=== PATIENT | male | born 1995 | race Caucasian/White ===

== ENCOUNTER 2021-08-08 15:26 | Emergency (ER) | payer OTHER, SELFPAY ==
[2021-08-08 15:31] VITALS: BP 120/75; PULSE 78; RESP 18; TEMP 36.9; O2SAT 98; BMI 36.6
[2021-08-08] MEDS: Tetracaine HCl/PF 0.5% Oph Sol 4 ML DROPS 1 DROP EYE-RIGHT (15:40)
[2021-08-08] MEDS: Fluorescein Sodium STRIP 1 STRIP EYE-RIGHT (15:40)
--- NOTE | 2021-08-08 15:43 | ED_ITS ---
HPI - Eye Problem General Chief complaint: Eye Problems Stated complaint: swollen right eye painful Time Seen by Provider: 08/08/21 15:35 Source: patient Mode of arrival: ambulatory Limitations: no limitations History of Present Illness HPI Narrative: 25-year-old male presents to the ER for evaluation of red and irritated right eye that started earlier today he was at work. 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 He denies any injury or foreign body sensation. He reports the eye slightly injury and watering more. It is red. He noticed some new onset swelling of the upper eyelid, denies any trauma. He denies any vision changes. He does not wear contacts or glasses. No URI symptoms. No complaints of the left eye. MD chief complaint: eye pain and eye redness Onset (ago): hour(s) Onset description: gradual Duration: constant Location: right eye Eye Symptoms: redness, pain, itching and discharge Place: work Mechanism: none Severity: moderate Severity scale (1-10): 5 If Pain, Quality: burning and aching Associated symptoms: none Treatments Prior to Arrival: none Related Data Patient tetanus UTD: Yes Previous Rx's Medication Instructions Recorded sulfacetamide sodium 10 % eye 1 drp ophthalmic (eye) Q3H #15 mL 08/08/21 drops (Bleph-10) Allergies Allergy/AdvReac Type Severity Reaction Status Date / Time No Known Allergies Allergy Unverified 11/09/19 19:32 [No Known Allergies*] Review of Systems Review of Systems: Constitutional: No Fever, No Chills ENT/Mouth: No sore throat, No Rhinorrhea, No Swallowing Difficulty Eyes: + Eye Pain, + Swelling, + Redness, +Discharge, No vision changes Cardiovascular: No Chest Pain, No SOB Respiratory: No Cough, No Sputum Gastrointestinal: No Nausea, No Vomiting Skin: No Skin Lesions, No rash Neuro: No Dizziness, No Headache Heme/Lymph:No Lymphadenopathy Physical Exam Vital Signs: Vital Signs: Last Vital Signs Temp 98.5 F 08/08/21 15:31 Pulse 78 08/08/21 15:31 Resp 18 08/08/21 15:31 BP 120/75 08/08/21 15:31 Pulse Ox 98 08/08/21 15:31 O2 Del Method 08/08/21 15:31 BMI result Body Mass Index 36.6 Appearance: Alert. Oriented X3. No acute distress. HEENT: Right eye with mild upper lid swelling, medial aspect slightly worse than the lateral aspect. Lid mandy it and no evidence of pustule or hordeolum visible at this time. The sclera and conjunctiva is injected throughout. Fluor escein exam reveals no corneal abrasions. Pupils are equal round reactive to light, EOMI. Normal inspection of the left eye CVS: Normal heart rate and rhythm. Pulses normal. Respiratory: No respiratory distress. Skin: Skin warm and dry. Normal skin color. Normal skin turgor. No rashes. Extremities: Normal inspection x4 Neuro: Oriented X 3. Grossly normal, nonfocal Course Course Course Narrative: 25-year-old male presents to the ER with irritated right eye that started earlier today. No foreign body sensation. It is slightly itchy with a swollen superior lid. There is conjunctival and scleral injection. Slight discharge noted. No vision changes. Fluorescein exam without any ulcerations or corneal abrasions. Will prescribe antibiotic drops for conjunctivitis/early hordeolum. Warm compresses advised and encouraged. Stable for discharge home. Given number for eye doctor across the street if symptoms dont improve or worsen. Critical Care Time Critical Care Time Critical Care Time: No Discharge Plan Discharge Clinical Impression: Conjunctivitis, Internal hordeolum of right eye Patient Disposition: Home, Self-Care Instructions: Stye (ED), Conjunctivitis (ED) Additional Instructions: Use the prescribed antibiotic drops as directed. Use warm compresses to the eye several times per day. Do your best not to itch or scratch your eye. Follow up with the eye doctor if no improvement or worsening symptoms. Name and number below Prescriptions: New sulfacetamide sodium [Bleph-10] 10 % drops 1 drp ophthalmic (eye) Q3H Qty: 15 0RF Referrals: Rehan Shah [Physician] - Stand Alone Forms: Work/School Release
== END 2021-08-08 15:57 | disposition home or self-care (01) ==
PROVIDERS: Emergency Provider Student in an Organized Health Care Education/Training Program
DX: H10.9 Unspecified conjunctivitis (principal); H00.011 Hordeolum externum right upper eyelid
CPT/HCPCS: 99283

== ENCOUNTER 2022-08-24 14:16 | Outpatient (REF) | payer MEDICAID, SELFPAY | END 2022-08-24 14:17 | disposition home or self-care (01) | LOC: HO.LAB 14:16 | PROVIDERS: Visit Provider Surgery | DX: E66.9 Obesity, unspecified (principal); R73.03 Prediabetes; G47.8 Other sleep disorders; F32.A Depression, unspecified; Z72.0 Tobacco use; Z68.39 Body mass index [BMI] 39.0-39.9, adult | CPT/HCPCS: 36415; 83036; 84134; 84443; 85025; 86140; 99202 ==

== ENCOUNTER 2022-09-22 10:29 | Outpatient (AMB) | payer MEDICAID, SELFPAY ==
--- NOTE | 2022-09-22 10:38 | MHC.OFFVISWM ---
Intake VS Expanded 09/22/22 10:50 Height 5 ft 11 in Weight 281 lb 12.012 oz BMI 39.3 BP 130/85 Blood Pressure Location Lt brachial Blood Pressure Position Sitting Pulse 78 Temp 97.9 F Temperature Source Temporal Artery Scan Pulse Oximetry 98 Oxygen Delivery Method Room Air Body Fat 104.2 Body Fat Percentage 37.1 Free Fat Mass 177.0 Muscle Mass 168.4 Visceral Mass 17.0 Water Mass 124.8 BMR 2,503 Intake Visit Reasons: (OV) F/U Gastric Balloon Intake Note: Patient here for 1m f/u gastric balloon. Discuss lab results. Reports no changes in medical hx. Currently does not take medications. Recent abs done on 08-24-22. 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 Patient notes that his heaviest weight of his adult life is 285 lb which prompted evaluation for pre diabetes, but the patient does not recall the measurements and we do not have notes from his PCP. In the time since his last visit, the patient is interested in pursuing sleeve gastrectomy. Patient also reports non restorative sleep and occasional headaches in the morning when he awakes. He notes that he has history of snoring and we wakes up gasping. His obesity also contributes to depression and feeling poorly about himself. His weight today 281.4/BMI 39.3 He denies prior abdominal operations. 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 Father Depression Son No problems noted. Son No problems noted. Son No problems noted. Son No problems noted. Social History Alcohol intake: current Alcohol intake frequency: holidays/special occasions only Patient Tobacco Use Status: Never used Tobacco Tobacco use type: Smokeless Tobacco Review of Systems Const All systems reviewed & are unremarkable except as noted in HPI and below Reports as per HPI Physical Exam On exam he is nontoxic He is in no acute distress He is having no respiratory difficulty Abdomen is obese Results Reviewed Results Reviewed: Labs 08/24/2022 Hemoglobin 14.8, normal indices, white blood cell count 6.5, normal differential, platelet count 226k Hemoglobin A1c 5.5 Pre-albumin 22.0 TSH 1.62 Urine nicotine pending Assessment & Plan Assessment & Plan (1) BMI 39.0-39.9,adult: Code(s): Z68.39 - Body mass index [BMI] 39.0-39.9, adult (2) Nicotine use: Code(s): Z72.0 - Tobacco use (3) Depression: Code(s): F32.A - Depression, unspecified (4) Non-restorative sleep: Code(s): G47.8 - Other sleep disorders Plan The patient is interested in moving forward with bariatric surgery, specifically a sleeve gastrectomy instead of gastric balloon. The importance of proper diet and increased activity to augment surgical weight loss was reviewed and apparently understood. Handouts regarding protein supplements and meal substitution as well as the importance of avoiding empty calories in beverages/carbohydrates and fats were reviewed and apparently understood. Patient will return to see me for 45 minute visit and will be set up with Behavioral Health, dietitian; see orders I reviewed the importance of nicotine cessation due to risk of ulcers and complications that could be fatal. Patient seemed understand and stated he would comply. Preoperative urine testing for nicotine was reviewed with the patient. Orders: Orders Vitamin B12 and Folate Today F32.A - Depression, unspecified, G47.8 - Other sleep disorders, Z68.39 - Body mass index [BMI] 39.0-39.9, adult, Z72.0 - Tobacco use Comprehensive Met. Panel Today F32.A - Depression, unspecified, G47.8 - Other sleep disorders, Z68.39 - Body mass index [BMI] 39.0-39.9, adult, Z72.0 - Tobacco use C Reactive Protein Today F32.A - Depression, unspecified, G47.8 - Other sleep disorders, Z68.39 - Body mass index [BMI] 39.0-39.9, adult, Z72.0 - Tobacco use Ferritin Today F32.A - Depression, unspecified, G47.8 - Other sleep disorders, Z68.39 - Body mass index [BMI] 39.0-39.9, adult, Z72.0 - Tobacco use Insulin Today F32.A - Depression, unspecified, G47.8 - Other sleep disorders, Z68.39 - Body mass index [BMI] 39.0-39.9, adult, Z72.0 - Tobacco use IRON PROFILE Today F32.A - Depression, unspecified, G47.8 - Other sleep disorders, Z68.39 - Body mass index [BMI] 39.0-39.9, adult, Z72.0 - Tobacco use Lipid Panel Today F32.A - Depression, unspecified, G47.8 - Other sleep disorders, Z68.39 - Body mass index [BMI] 39.0-39.9, adult, Z72.0 - Tobacco use PTHI Today F32.A - Depression, unspecified, G47.8 - Other sleep disorders, Z68.39 - Body mass index [BMI] 39.0-39.9, adult, Z72.0 - Tobacco use Vitamin A Today F32.A - Depression, unspecified, G47.8 - Other sleep disorders, Z68.39 - Body mass index [BMI] 39.0-39.9, adult, Z72.0 - Tobacco use Vitamin B1 Today F32.A - Depression, unspecified, G47.8 - Other sleep disorders, Z68.39 - Body mass index [BMI] 39.0-39.9, adult, Z72.0 - Tobacco use Vitamin D 25-OH Total Today F32.A - Depression, unspecified, G47.8 - Other sleep disorders, Z68.39 - Body mass index [BMI] 39.0-39.9, adult, Z72.0 - Tobacco use Zinc Today F32.A - Depression, unspecified, G47.8 - Other sleep disorders, Z68.39 - Body mass index [BMI] 39.0-39.9, adult, Z72.0 - Tobacco use ECG 12 lead EKG Today F32.A - Depression, unspecified, G47.8 - Other sleep disorders, Z68.39 - Body mass index [BMI] 39.0-39.9, adult, Z72.0 - Tobacco use H Pylori Breath Test Today F32.A - Depression, unspecified, G47.8 - Other sleep disorders, Z68.39 - Body mass index [BMI] 39.0-39.9, adult, Z72.0 - Tobacco use Nicotine and Metabolite Ur, Qt Today G47.8 - Other sleep disorders, Z68.39 - Body mass index [BMI] 39.0-39.9, adult, Z72.0 - Tobacco use FL upper GI w air w Ba Swallow Today F32.A - Depression, unspecified, G47.8 - Other sleep disorders, Z68.39 - Body mass index [BMI] 39.0-39.9, adult, Z72.0 - Tobacco use RT home sleep study Today F32.A - Depression, unspecified, G47.8 - Other sleep disorders, Z68.39 - Body mass index [BMI] 39.0-39.9, adult, Z72.0 - Tobacco use US abdomen comp w elastography Today F32.A - Depression, unspecified, G47.8 - Other sleep disorders, Z68.39 - Body mass index [BMI] 39.0-39.9, adult, Z72.0 - Tobacco use XR chest 2V Today F32.A - Depression, unspecified, G47.8 - Other sleep disorders, Z68.39 - Body mass index [BMI] 39.0-39.9, adult, Z72.0 - Tobacco use Referrals Behavioral Health Referral F32.A - Depression, unspecified, G47.8 - Other sleep disorders, Z68.39 - Body mass index [BMI] 39.0-39.9, adult, Z72.0 - Tobacco use Nutrition/Dietitian Referral F32.A - Depression, unspecified, G47.8 - Other sleep disorders, Z68.39 - Body mass index [BMI] 39.0-39.9, adult, Z72.0 - Tobacco use Coding Level of Care Code Est Pt Level 4 (04063) Diagnoses BMI 39.0-39.9,adult Z68.39 Nicotine use Z72.0 Depression F32.A Non-restorative sleep G47.8
[2022-09-22 10:50] VITALS: BP 130/85; PULSE 78; TEMP 36.6; O2SAT 98; BMI 39.3
== END 2022-09-22 11:16 | disposition home or self-care (01) ==
PROVIDERS: Visit Provider Surgery
DX: E66.01 Morbid (severe) obesity due to excess calories (principal); Z68.39 Body mass index [BMI] 39.0-39.9, adult
CPT/HCPCS: 99215

== ENCOUNTER → 2022-09-22 10:29 | Outpatient (BNVA) | payer MEDICAID, SELFPAY | PROVIDERS: Visit Provider Surgery ==

== ENCOUNTER 2022-10-13 13:13 | Outpatient (REF) | payer MEDICAID, SELFPAY ==
--- NOTE | ~2022-10-13 | XR_ITS ---
EXAMINATION: XR CHEST CLINICAL INFORMATION: Body mass index COMPARISON: None available. TECHNIQUE: 2 views of the chest were obtained. FINDINGS: There is no gross pneumothorax. Heart size is normal. No pleural effusion. No focal consolidation to suggest pneumonia. XR/XR chest 2V IMPRESSION: No evidence of pneumonia.
--- NOTE | ~2022-10-13 | US_ITS ---
EXAMINATION: US COMPLETE ABDOMEN WITH LIVER ELASTOGRAPHY CLINICAL INFORMATION: Obesity. COMPARISON: None available. TECHNIQUE: Real-time imaging of the abdominal viscera. Noninvasive ultrasound liver fibrosis assessment is performed using Jennifer ElastPQ point quantification shear wave elastography (2D-SWE) with a C5-2 MHz transducer. Multiple elastography samples are obtained. FINDINGS: PANCREAS: Limited. The visualized pancreatic head and body are normal in appearance. The remainder of the pancreas is obscured from visualization by the overlying bowel gas. ABDOMINAL AORTA: The proximal, middle, and distal aortic segments are normal in caliber. INFERIOR VENA CAVA: Visualized portions are normal. LIVER: There is very mild hepatomegaly. The liver demonstrates normal contour and increased echogenicity, with pericholecystic sparing. No focal lesion or intrahepatic biliary duct dilatation. The right lobe measures 17.2 cm in length. The left lobe measures 14.0 cm in length. Portal flow is towards the liver (hepatopetal). Shear wave liver elastography median stiffness is 1.31 m/s (reference: normal median stiffness is 1.3 m/s or less). IQR/median stiffness to assess sampling precision is 0.4 (reference: good quality data set is IQR/median stiffness of 0.15 or less). GALLBLADDER: Normal. The gallbladder is physiologically distended without evidence of stones, sludge, polyps, wall thickening or pericholecystic fluid. COMMON BILE DUCT: Normal in caliber measuring 0.4 cm in diameter. RIGHT KIDNEY: Normal. No hydronephrosis. No renal calculi or focal parenchymal lesions. The kidney measures 12.0 cm in maximum dimension. LEFT KIDNEY: Normal. No hydronephrosis. No renal calculi or focal parenchymal lesions. The kidney measures 12.1 cm in maximum dimension. SPLEEN: Normal. The spleen measures 10.6 cm in maximum dimension. FREE FLUID: None. US/US abdomen comp w elastography IMPRESSION: 1. There is generalized increase in hepatic echotexture, consistent with fatty infiltration or hepatocellular disease. Please correlate clinically. Characteristic pericholecystic sparing favors fatty infiltration. No focal hepatic mass or intrahepatic biliary dilatation is seen. 2. There is very mild hepatomegaly. 3. Liver elastography: In the absence of other known clinical signs, measurements rule out compensated advanced chronic liver disease. If there are known clinical signs, further testing may be needed for confirmation. 4. Technically limited ultrasound examination of the pancreatic tail. REFERENCE: Society of Radiologists in Ultrasound Liver Stiffness Thresholds (2020): LIVER STIFFNESS THRESHOLDS: *Liver Stiffness equal or less than 1.3 m/s: High probability of being normal. *Liver Stiffness less than 1.7 m/s: In the absence of other known clinical signs, rules out compensated advanced chronic liver disease. *Liver Stiffness 1.7-2.1 m/s: Suggestive of compensated advanced chronic liver disease but need further test for confirmation. *Liver Stiffness over 2.1 m/s: Rules in compensated advanced chronic liver disease. *Liver Stiffness over 2.4 m/s: Suggestive of clinically significant portal hypertension. QUALITY OF DATA SET: *IQR/Median value equal or less than 0.15 implies a quality data set. *IQR/Median value over 0.15 implies a poor quality data set. SIGNIFICANT CHANGE FROM PRIOR EXAM: Significant change if liver stiffness measurement is 10% or greater from prior exam. OTHER CONSIDERATIONS: The stage of liver fibrosis may be overestimated in the setting of acute hepatitis, liver inflammation, elevated liver function tests, hepatic vascular congestion, obstructive cholestasis, non-fasting state, and infiltrative diseases such as amyloidosis and lymphoma. In some patients with NAFLD, the liver stiffness thresholds for compensated advanced chronic liver disease may be lower. In causes other than viral hepatitis and NAFLD, liver stiffness thresholds are not well established.
== END 2022-10-13 13:14 | disposition home or self-care (01) ==
LOC: HO.US 13:13
PROVIDERS: Visit Provider Surgery
DX: E66.9 Obesity, unspecified (principal); Z68.39 Body mass index [BMI] 39.0-39.9, adult; F32.A Depression, unspecified; G47.8 Other sleep disorders; Z72.0 Tobacco use
CPT/HCPCS: 71046; 76705; 76981

== ENCOUNTER 2022-10-21 08:35 | Outpatient (AMB) | payer MEDICAID, SELFPAY ==
--- NOTE | 2022-10-21 08:37 | A.OFFVIS_ITS ---
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 Patient notes that his heaviest weight of his adult life is 285 lb which prompted evaluation for pre diabetes, but the patient does not recall the measurements and we do not have notes from his PCP. In the time since his last visit, the patient is interested in pursuing sleeve gastrectomy. The patient has tried pure protein which she will mix with water; he is instructed to try almond milk, on sweetened. The importance of exercise and tracking calorie burning per exercise session was discussed. Patient also reports non restorative sleep and occasional headaches in the morning when he awakes. He notes that he has history of snoring and we wakes up gasping. His obesity also contributes to depression and feeling poorly about himself. His weight today 283.8/BMI 39.6 Preop work-up SWL classes __ /8 RD Labs H. pylori EKG CXR NAD Abd U/S hepatomegaly, NAFLD UGI He denies prior abdominal operations. 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 Father Depression Son No problems noted. Son No problems noted. Son No problems noted. Son No problems noted. Social History Alcohol intake: current Alcohol intake frequency: holidays/special occasions only Patient Tobacco Use Status: Never used Tobacco Tobacco use type: Smokeless Tobacco Review of Systems Const All systems reviewed & are unremarkable except as noted in HPI and below Reports as per HPI Physical Exam Vital Signs: Last Vital Signs Temp 97.8 F 10/21/22 08:41 Pulse 84 10/21/22 08:41 BP 154/69 H 10/21/22 08:41 Pulse Ox 95 10/21/22 08:41 Oxygen Delivery Method Room Air 10/21/22 08:41 On exam he is nontoxic He is in no acute distress He is having no respiratory difficulty Abdomen is obese Results Reviewed Results Reviewed: Labs 08/24/2022 Hemoglobin 14.8, normal indices, white blood cell count 6.5, normal differential, platelet count 226k Hemoglobin A1c 5.5 Pre-albumin 22.0 TSH 1.62 Urine nicotine pending Diagnostic imaging Abdominal ultrasound with liver elastography 10/13/2022 shows NAFLD & mild hepatomegaly CXR NAD Assessment & Plan Assessment & Plan (1) BMI 39.0-39.9,adult: Code(s): Z68.39 - Body mass index [BMI] 39.0-39.9, adult (2) Non-restorative sleep: Code(s): G47.8 - Other sleep disorders (3) Nicotine use: Code(s): Z72.0 - Tobacco use (4) Depression: Code(s): F32.A - Depression, unspecified Plan The patient remains interested in proceeding with laparoscopic sleeve gastrectomy. The importance of continuing the workup to assess for vitamin deficiency was discussed and apparently understood. Patient has fasting labs as well as diagnostic imaging outstanding. He will return in 3 weeks for 45 minute follow-up and call the office with questions. The patient confirmed he would like his meal plan interpreted in to Khmer and sent to: [email or web address] [email or web address] Bariatric Plan 1.?? Nutritional counseling:?Be sure to careful read the number of scoops per shake if you are using powdered mix Start with 3 Pure Protein shakes, 25gm protein/scoop First shake (1 scoop in 8 oz low fat unsweetened almond milk or water) at 3pm- 5pm Dinner at 4pm (10 forks of protein and 10 forks of salad/vegetables). Meal to include lean meat (beef, fish, pork, turkey, chicken), cooked vegetables or a salad with olive oil and/or fruits (berries, pears, apples, kiwi). Avoid breads, potatoes, starches, rice, pasta, desserts, no cookies or candies. Second shake, (1 scoop in 8 oz low fat unsweetened almond milk or water) at 8pm-10pm Another shake with 1/2 scoop in 8 oz unsweetened almond milk or water as a work snack at 10pm-5am. Try to drink 64 oz of water daily and avoid soda and juices. Remember to try one of the recommended protein bars to report which you will use. ?2. Each shake would be drunk slowly, like coffee in a period of 2 hours. ?3. Cut each bar in 4 pieces and eat each piece in 30 min to make each bar last 2 hours. ?4. I emphasized the importance of measuring accurately the food portion and measure it carefully when serving the food on the plate ?5. The meal portions include 10 full-size forks of meat and 10 full-size forks of salad. You should always eat the meat portion but you can skip the forks of salad/vegetables and replace with a fruit if you like. The less you do it the better weight loss will be. ?6. One full-size fork is what can be scooped on the fork without falling aside and not what can be bit with the fork. Use regular forks like those you find in a typical restaurant. ?7.? Please send me weight measurements as soon as possible and then once a week. Always include your diet and exercise plan. Alternatively come weekly at the office for weight checks and send me the measurements. ?8. Exercise counseling:? Begin by watching a stretching for beginner?s video.? Start slowly and begin to stretch your muscles.? You should do this before and after each exercise session to prevent injury.? Please use the exercise equipment at your building. Start elliptical with a resistance of 2. Increase resistance by 1 every 3 min to your most comfortable resistance with a max resistance of 8.? Reduce the resistance by 1 every 3 minutes back down to 2 and repeat cycles for 300 calories. Alternatively, start treadmill with a speed of 3.0 and incline of 0, increasing incline by 1 every 3 minutes to the highest comfortable level (max 6 for now) then decrease in the same fashion.? Repeat p rocess to a goal of 300 calories.? Goal of 2000 calories burned or more weekly.? You may also consider use of the stationary bike.? The easiest would be to choose the fat-burn or interval training program on the machine and do this until you reach the 300 calorie goal.? Alternatively, you can manually adjust the resistance in a similar fashion as mentioned above, (resistance of 2-8 with a goal speed of 12 mph).?Tracking calories is essential. 9. Alternatively, start walking outside daily, tracking calories with a goal of 300 calories per day, daily. If kmppb-yuqda-lay is needed, you can start there, but the goal is DAILY. You can download the kristina?[email or web address]?which can track your time, distance and calories while walking outside.? You press start in the kristina when you start and then stop when you are finished. ? 10.? It is important to avoid and for at least 18 months postoperatively and it has been discussed at the information session 11. Please get labs, EKG and chest X-Ray within 1 week. 12. Discussed and answered all questions regarding?obtained consent to participate in the [facility]?Registry. 13. Please follow the diet plan exactly, without any change.? If you do not like something about the plan or you feel hungry, you need to communicate with me so I can help you revise the plan.? You should not change the plan yourself. 14. Goal is to lose 1.5-2.0 lbs/week 15. Goal is to lose 10% of your weight before surgery, which is about 28.3 lbs. Ultimate weight goal: 255.5 lbs before surgery IF YOU EXPERIENCE PAIN, SEVERE SHORTNESS OF BREATH, DIZZINESS OR LIGHTHEADEDNESS, OR SIGNIFICANT CONSTIPATION OR DIARRHEA, (DIARRRHEA CAN OCCUR FROM SOME ARTIFICIAL SWEETENERS) PLEASE NOTIFY THE OFFICE! If you have diabetes, you will need to follow your blood sugars.? Please discuss with Dr. Gamboa.? If you have hypertension/high blood pressure, you will need to monitor your bl ood pressure regarding adjusting medications.? Please discuss with Dr. Gamboa.? Patient is morbidly obese and is not considered stable at this time.?I spent a total of 63 minutes reviewing/updating records, examining the patient and counseling the patient on weight management as detailed above. Moglueube options: ?Sit to Be Fit, Daily Burn, Jeramie, Walk away the pounds, The [employer] Project Websites: Sit and Be Fit? https://www.sitandbefit.org/ Go For Life https://ch5dyym.claudia.nih.gov/ Coding Level of Care Code Est Pt Level 5 (31567) Diagnoses BMI 39.0-39.9,adult Z68.39 Non-restorative sleep G47.8 Nicotine use Z72.0 Depression F32.A
[2022-10-21 08:41] VITALS: BP 154/69; PULSE 84; TEMP 36.6; O2SAT 95
== END 2022-10-21 09:41 | disposition home or self-care (01) ==
PROVIDERS: Visit Provider Surgery
DX: E66.01 Morbid (severe) obesity due to excess calories (principal); Z68.39 Body mass index [BMI] 39.0-39.9, adult
CPT/HCPCS: 99215

== ENCOUNTER → 2022-10-21 08:35 | Outpatient (BNVA) | payer MEDICAID, SELFPAY | PROVIDERS: Visit Provider Surgery | DX: E66.9 Obesity, unspecified (principal); Z68.39 Body mass index [BMI] 39.0-39.9, adult; G47.8 Other sleep disorders; F32.A Depression, unspecified; Z72.0 Tobacco use | CPT/HCPCS: 99212 ==

== ENCOUNTER 2022-10-27 10:34 | Outpatient (REF) | payer MEDICAID, SELFPAY ==
--- NOTE | ~2022-10-27 | FL_ITS ---
EXAMINATION: XR FLUOROSCOPY UPPER GI WITH AIR CLINICAL INFORMATION: Preoperative bariatric surgery. COMPARISON: None TECHNIQUE: Fluoroscopic air contrast upper GI examination was performed utilizing standard techniques with thin and thick barium and effervescent granules. Numerous spot images were obtained. FINDINGS: Lateral cine images of the oropharynx and hypopharynx demonstrate normal swallow mechanism with normal epiglottic inversion and soft palate elevation. No tracheal penetration, glottic or subglottic aspiration identified. No nasopharyngeal reflux present. Hypopharyngeal structures appear normal without evidence of mass or diverticulum. There was no significant cricopharyngeal achalasia. Dual and single contrast images of the esophagus demonstrate normal caliber, contour, and mucosal pattern. No evidence of stricture, mass, or ulcerations identified. Esophageal peristalsis was normal. No evidence of hiatus hernia identified. Mild gastroesophageal reflux was seen during the course of the examination, to the approximate level of the tanja. Dual contrast and single contrast images of the stomach demonstrated normal contour and mucosal pattern without evidence of mass, ulceration, or other abnormality. Contrast freely passed into the gastric antrum and duodenal bulb without delay. Single and air-contrast images of the duodenal bulb demonstrate no abnormality. The duodenal sweep has a normal appearance, course, and mucosal fold appearance. The imaged proximal jejunum has a normal fold pattern and caliber. FLUOROSCOPY TIME: 3.3 minutes Number of Spot Images: 25 DOSE AREA PRODUCT: 43.889 uGy-m2 (microgray-meter squared) FL/FL upper GI w air w Ba Swallow IMPRESSION: Mild gastroesophageal reflux identified. Otherwise, normal examination.
--- NOTE | 2022-10-27 11:17 | ECG_ITS ---
Test Reason : HIGH BMI Blood Pressure : / mmHG Vent. Rate : 078 BPM Atrial Rate : 078 BPM P-R Int : 164 ms QRS Dur : 088 ms QT Int : 358 ms P-R-T Axes : 041 -24 008 degrees QTc Int : 408 ms Normal sinus rhythm Normal ECG No previous ECGs available Referred By: Stanley Gamboa Electronically Signed By:DAVID NGUYEN
== END 2022-10-27 10:35 | disposition home or self-care (01) ==
LOC: HO.XRAY 10:34
PROVIDERS: Visit Provider Surgery
DX: F32.A Depression, unspecified (principal); G47.8 Other sleep disorders; Z72.0 Tobacco use
CPT/HCPCS: 74246; 93005

== ENCOUNTER → 2022-10-27 10:36 | Outpatient (BNV) | payer MEDICAID, SELFPAY | PROVIDERS: Visit Provider Radiology Diagnostic Radiology | DX: G47.8 Other sleep disorders (principal); E66.9 Obesity, unspecified; Z01.818 Encounter for other preprocedural examination | CPT/HCPCS: 74246 ==

== ENCOUNTER → 2022-11-03 15:11 | Outpatient (BNVA) | payer MEDICAID, SELFPAY | PROVIDERS: Visit Provider Dietitian, Registered | DX: E66.9 Obesity, unspecified (principal); Z71.3 Dietary counseling and surveillance | CPT/HCPCS: 97802 ==

== ENCOUNTER → 2022-11-09 09:29 | Outpatient (BNV) | payer MEDICAID, SELFPAY | PROVIDERS: Visit Provider Internal Medicine | DX: G47.33 Obstructive sleep apnea (adult) (pediatric) (principal) | CPT/HCPCS: 95806 ==

== ENCOUNTER → 2022-11-09 13:12 | Outpatient (REF) | payer MEDICAID, SELFPAY ==
[2022-11-09 15:28] LABS: Alanine Aminotransferase 33 U/L (0-40); Albumin Level 4.4 g/dL (3.5-5.0); Alkaline Phosphatase 60 U/L (39-117); Anion Gap 12 (12-20); Aspartate Amino Transferase 22 U/L (5-37); Bilirubin Total 0.4 mg/dL (0.0-1.0); Blood Urea Nitrogen 11 mg/dL (9-16); C Reactive Protein 0.62 mg/dL (< or = 0.50); Calcium 10.1 mg/dL (8.4-10.2); Carbon Dioxide 25 mmol/L (22-29); Chloride 107 mmol/L (96-108); Cholesterol 186 mg/dL (<200); Estimated Glomerular Filt Rate > 60; Glucose Random 93 mg/dL (60-115); HDL Cholesterol 39 mg/dL (>40); Iron 65 mcg/dL (45-160); LDL Cholesterol Calculated 124 mg/dL (<100); Percent Iron Saturation 22 % (15-50); Potassium 4.2 mmol/L (3.3-5.1); Sodium 140 mmol/L (135-145); Total Iron Binding Capacity 295 mcg/dL (228-428); Total Protein 7.9 g/dL (6.5-8.0); Triglycerides 119 mg/dL (<150); Unsaturated Iron Binding 230 ug/dL
[2022-11-09 15:32] LABS: Ferritin 185 ng/mL (20-250); Insulin 36 uU/mL (2-29); Vitamin D 25-OH Total 28.8 ng/mL (>30)
[2022-11-09 15:44] LABS: Vitamin B12 1231 pg/mL (200-900)
[2022-11-10 16:14] LABS: Calcium (PTHI) 9.3 mg/dL (8.6-10.3); PTHI 49 pg/mL (16-77)
[2022-11-13 07:09] LABS: Zinc 101 mcg/dL (60-130)
[2022-11-13 18:18] LABS: Vitamin A 42 mcg/dL (38-98)
[2022-11-15 12:02] LABS: Vitamin B1 7 nmol/L (8-30)
[2022-11-17 22:28] LABS: Cotinine, U <2 ng/mL; Nicotine, U <2 ng/mL
== END ==
LOC: HO.SL 13:12
PROVIDERS: Visit Provider Surgery
DX: G47.33 Obstructive sleep apnea (adult) (pediatric) (principal); G47.8 Other sleep disorders; F32.A Depression, unspecified; Z72.0 Tobacco use
CPT/HCPCS: 80053; 80061; 80323; 82306; 82607; 82728; 82746; 83525; 83540; 83970; 84425; 84590; 84630; 86140; 95806

== ENCOUNTER 2022-11-25 | Outpatient (REF) | payer MEDICAID, SELFPAY | END 2022-11-25 00:01 | disposition home or self-care (01) | LOC: CF | PROVIDERS: Visit Provider Nurse Practitioner Family | DX: G47.33 Obstructive sleep apnea (adult) (pediatric) (principal); G47.34 Idiopathic sleep related nonobstructive alveolar hypoventilation | CPT/HCPCS: 99212 ==

== ENCOUNTER → 2022-11-25 14:49 | Outpatient (AMB) | payer MEDICAID, SELFPAY ==
[2022-11-25 14:51] VITALS: BP 124/68; PULSE 80; O2SAT 98; BMI 39.5
--- NOTE | 2022-11-25 14:51 | MHC.OFFVIS ---
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 He was referred by PCP after home sleep study revealed an AHI of 69 with nocturnal hypoxia. He reports daytime fatigue, snoring and BMI of 39.5. He denies any respiratory symptoms. He denies any personal history of respiratory conditions. He reports his son has asthma, otherwise no other pertinent family history. [facility] Surgical History No history of previous surgery Family History Mother No problems noted. Father Depression Son No problems noted. Son No problems noted. Son No problems noted. Son No problems noted. Social History Alcohol intake: current Alcohol intake frequency: holidays/special occasions only Patient Tobacco Use Status: Never used Tobacco Tobacco use type: Smokeless Tobacco Review of Systems Const Denies chills, Denies excessive sweating, Denies fever(s), Denies headache(s) and Denies night sweats Eyes Denies dry eyes, Denies irritation and Denies itchy eyes ENT Reports Normal hearing present, Denies headache(s), Denies nasal congestion, Denies nasal discharge, Denies post nasal drip and Denies sore throat Card Denies chest pain, Denies chest pain at rest, Denies chest pain with activity, Denies claudication, Denies leg edema, Denies dyspnea, Denies dyspnea on exertion, Denies orthopnea and Denies paroxysmal nocturnal dyspnea Resp Denies chest congestion, Denies cough, Denies excessive phlegm production, Denies pain on inspiration, Denies pain with cough, Denies dyspnea, Denies dyspnea on exertion, Denies stridor and Denies wheezing Musc Denies myalgias Neuro Reports Normal hearing present and Denies headache(s) Endo Denies excessive sweating Jay/Lymph Denies lymphadenopathy Aller/Immun Denies itchy eyes, Denies seasonal rhinorrhea and Denies wheezing Physical Exam Vital Signs: Last Vital Signs Pulse 80 11/25/22 14:51 BP 124/68 11/25/22 14:51 Pulse Ox 98 11/25/22 14:51 Oxygen Delivery Method Room Air 11/25/22 14:51 BMI result Body Mass Index 39.5 Const General: cooperative, healthy appearing, comfortable, no acute distress, well developed and alert Nutritional Appearance: obese Orientation/consciousness: patient oriented x3 Limitations: no limitations HEENT Head: Yes normal to inspection, Yes normocephalic and Yes atraumatic Ears: hearing grossly normal bilaterally and external ears normal Eyes General: appearance normal, both eyes and all related structures Eyelids: Yes eyelids normal Sclerae: sclerae normal EOM: EOMs intact bilaterally Neck Neck: Yes normal visual inspection and Yes no lymphadenopathy Lymphatic: no lymphadenopathy noted Chest Chest palpation & inspection: normal inspection of the chest Resp Effort & Inspection: normal respiratory effort, able to speak in complete sentences, no audible wheezes, no cough, no stridor, not tachypneic, no tripod positioning and no use of accessory muscles Auscultation: clear to auscultation bilaterally Cardio Jugular venous distension: no JVD Rate: regular rate Rhythm: regular rhythm Skin Other: warm, dry General skin exam: no rashes or lesions noted Neuro General: patient oriented x3 Cranial nerves: Yes Normal hearing present Cognition (Neuro): normal cognition Gait exam (Neuro): Normal gait present Extrem General: Yes normal to inspection, Yes capillary refill normal, Yes no clubbing, cyanosis or edema and Yes no pedal edema Psych Appearance: grossly normal and well kempt Speech and movement: Normal speech and movement present and Clear speech present Affect: normal affect Attitude: cooperative Thought process: Normal thought process present Thought content: Normal thought content present Insight: Good insight present (Psych) Judgement: Good judgement present (Psych) Results Reviewed Results Reviewed: Assessment & Plan Assessment & Plan (1) Severe obstructive sleep apnea: Code(s): G47.33 - Obstructive sleep apnea (adult) (pediatric) (2) Nocturnal hypoxemia: Code(s): G47.34 - Idiopathic sleep related nonobstructive alveolar hypoventilation Plan Reviewed sleep study results with patient which revealed an AHI of 69 and average oxygen of 91% with 56 minutes below 88%, lowest 68%. Since patient with significant BRETT and hypoxia, will send for in lab sleep study, as recommended. Sleep hygiene education reviewed. Discussed pathophysiology and effects of untreated BRETT. Reviewed importance of compliance of CPAP therapy as well as weight reduction. All questions were answered and patient is in agreement of plan. Will follow up to review results. Orders: Orders RT PSG in-lab sleep study Today G47.33 - Obstructive sleep apnea (adult) (pediatric), G47.34 - Idiopathic sleep related nonobstructive alveolar hypoventilation Coding Level of Care Code New Pt Level 3 (28835) Diagnoses Severe obstructive sleep apnea G47.33 Nocturnal hypoxemia G47.34
== END ==
PROVIDERS: Referring Provider Surgery; Visit Provider Nurse Practitioner Family
DX: G47.33 Obstructive sleep apnea (adult) (pediatric) (principal); G47.34 Idiopathic sleep related nonobstructive alveolar hypoventilation
CPT/HCPCS: 99203; 99212

== ENCOUNTER 2022-12-16 13:45 | Outpatient (AMB) | payer MEDICAID, SELFPAY ==
--- NOTE | 2022-12-16 13:46 | MHC.OFFVISWM ---
Intake VS Expanded 12/16/22 13:52 BP 136/68 Blood Pressure Location Rt brachial Blood Pressure Position Sitting Pulse 81 Pulse Source Pulse Oximeter Temp 96.9 F Temperature Source Tympanic Pulse Oximetry 94 Oxygen Delivery Method Room Air Height 5 ft 11 in Weight 282 lb 3.2 oz BMI 39.4 Body Fat % 42.6 Body Fat Mass 120.2 Fat Free Mass 162.0 Visceral Fat Rating 10.0 Body Water % 41.2 Body Water Mass 116.2 Muscle Mass/Score 153.8 Basal Metabolic Rate/Score 2,315 Intake Visit Reasons: Obstructive sleep apnea (adult) (pediatri Allergies No Known Allergies [No Known Allergies*] Allergy (Verified 11/25/22 15:00) HPI HPI Comments History of Present Illness Details The patient is a 26-year-old gentleman who is self-referred to discuss his obesity, prediabetes and interest in some sort of weight management. Patient notes that his heaviest weight of his adult life is 285 lb which prompted evaluation for pre diabetes, but the patient does not recall the measurements and we do not have notes from his PCP. He entered the weight loss program 08/24/22 at 282.6/BMI 39.4. He was initially interested in gastric balloon, but at follow-up visit, decided he wished to pursue sleeve gastrectomy. In the meantime, he is missed 2 appointments due to the of his grandmother. He notes that he has been trying to drink the protein drinks recommended but is not exercising and continues to work nights. In the time since his last visit, the patient is interested in pursuing sleeve gastrectomy. The patient has tried pure protein which he mixed with water; he is instructed to try unsweetened almond milk. The importance of exercise and tracking calorie burning per exercise session was discussed. The pt has missed several f/u appts. He was diagnosed with severe BRETT via sleep study and has a follow-up with pulmonology on 01/09/2023 according to the patient. We reviewed the inherent risks of progression of obstructive sleep apnea as well as the fact that it is likely contributing to his daytime fatigue/nighttime fatigue. He is not exercising. Patient also reports non restorative sleep and occasional headaches in the morning when he awakes. He notes that he has history of snoring and we wakes up gasping. His obesity also contributes to depression and feeling poorly about himself. His weight today 283.8/BMI 39.6 Preop work-up SWL classes __ /8 RD Labs H. pylori EKG CXR NAD Abd U/S hepatomegaly, NAFLD UGI He denies prior abdominal operations. 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 Father Depression Son No problems noted. Son No problems noted. Son No problems noted. Son No problems noted. Social History Alcohol intake: current Alcohol intake frequency: holidays/special occasions only Patient Tobacco Use Status: Never used Tobacco Tobacco use type: Smokeless Tobacco Review of Systems Const All systems reviewed & are unremarkable except as noted in HPI and below Reports as per HPI Physical Exam On exam he is nontoxic He is in no acute distress He is having no respiratory difficulty Abdomen is obese Results Reviewed Results Reviewed: Labs 08/24/2022 Hemoglobin 14.8, normal indices, white blood cell count 6.5, normal differential, platelet count 226k Hemoglobin A1c 5.5 Pre-albumin 22.0 TSH 1.62 LFTs WNL LDL elevated at 124 HDL low at 39 Chol 186 Vit D low; Vit A low, Vit B1 low CRP elevated at 0.62 Urine nicotine negative (<0.2) Diagnostic imaging Abdominal ultrasound with liver elastography 10/13/2022 shows NAFLD & mild hepatomegaly CXR NAD Assessment & Plan Assessment & Plan (1) BMI 39.0-39.9,adult: Code(s): Z68.39 - Body mass index [BMI] 39.0-39.9, adult (2) Severe obstructive sleep apnea: Code(s): G47.33 - Obstructive sleep apnea (adult) (pediatric) (3) Depression: Code(s): F32.A - Depression, unspecified (4) Vitamin A deficiency: Code(s): E50.9 - Vitamin A deficiency, unspecified (5) Vitamin D deficiency: Code(s): E55.9 - Vitamin D deficiency, unspecified (6) Vitamin B1 deficiency: Code(s): E51.9 - Thiamine deficiency, unspecified Plan Via educational interpreter, we reviewed his recommended meal plan. Patient is using pure protein with almond milk, 2 scoops in the afternoon and in the evening. He states he did not receive the meal plan and exercise plan outlined as sent, so it will be translated in sent again to [email or web address]. The patient remains interested in proceeding with laparoscopic sleeve gastrectomy. The importance of continuing the workup to assess for vitamin deficiency was discussed and apparently understood. Patient has fasting labs as well as diagnostic imaging outstanding. He will return in 3 weeks for 60 minute follow-up and call the office with questions. The patient confirmed he would like his meal plan interpreted in to Kiswahili and sent to: [email or web address] [email or web address] Bariatric Plan 1.?? Nutritional counseling:?Be sure to careful read the number of scoops per shake if you are using powdered mix Start with 3 Pure Protein shakes, 25gm protein/scoop First shake (1 scoop in 8 oz low fat unsweetened almond milk or water) at 3pm-5pm Dinner at 4pm (10 forks of protein and 10 forks of salad/vegetables). Meal to include lean meat (beef, fish, pork, turkey, chicken), cooked vegetables or a salad with olive oil and/or fruits (berries, pears, apples, kiwi). Avoid breads, potatoes, starches, rice, pasta, desserts, no cookies or candies. Second shake, (1 scoop in 8 oz low fat unsweetened almond milk or water) at 8pm-10pm Another shake with 1/2 scoop in 8 oz unsweetened almond milk or water as a work snack at 10pm-5am. Try to drink 64 oz of water daily and avoid soda and juices. Remember to try one of the recommended protein bars to report which you will use. ?2. Each shake would be drunk slowly, like coffee in a period of 2 hours. ?3. Cut each bar in 4 pieces and eat each piece in 30 min to make each bar last 2 hours. ?4. I emphasized the importance of measuring accurately the food portion and measure it carefully when serving the food on the plate ?5. The meal portions include 10 full-size forks of meat and 10 full-size forks of salad. You should always eat the meat portion but you can skip the forks of salad/vegetables and replace with a fruit if you like. The less you do it the better weight loss will be. ?6. One full-size fork is what can be scooped on the fork without falling aside and not what can be bit with the fork. Use regular forks like those you find in a typical restaurant. ?7.? Please send me weight measurements as soon as possible and then once a week. Always include your diet and exercise plan. Alternatively come weekly at the office for weight checks and send me the measurements. ?8. Exercise counseling:? Begin by watching a stretching for beginner?s video.? Start slowly and begin to stretch your muscles.? You should do this before and after each exercise session to prevent injury.? Please use the exercise equipment at your building. Start elliptical with a resistance of 2. Increase resistance by 1 every 3 min to your most comfortable resistance with a max resistance of 8.? Reduce the resistance by 1 every 3 minutes back down to 2 and repeat cycles for 300 calories. Alternatively, start treadmill with a speed of 3.0 and incline of 0, increasing incline by 1 every 3 minutes to the highest comfortable level (max 6 for now) then decrease in the same fashion.? Repeat process to a goal of 300 calories.? Goal of 2000 calories burned or more weekly.? You may also consider use of the stationary bike.? The easiest would be to choose the fat-burn or interval training program on the machine and do this until you reach the 300 calorie goal.? Alternatively, you can manually adjust the resistance in a similar fashion as mentioned above, (resistance of 2-8 with a goal speed of 12 mph).?Tracking calories is essential. 9. Alternatively, start walking outside daily, tracking calories with a goal of 300 calories per day, daily. If [id number] is needed, you can start there, but the goal is DAILY. You can download the kristina?[employer]?which can track your time, distance and calories while walking outside.? You press start in the kristina when you start and then stop when you are finished. ? 10.? It is important to avoid and for at least 18 months postoperatively and it has been discussed at the information session 11. Please get labs, EKG and chest X-Ray within 1 week. 12. Discussed and answered all questions regarding?obtained consent to participate in the [place] [facility]?Registry. 13. Please follow the diet plan exactly, without any change.? If you do not like something about the plan or you feel hungry, you need to communicate with me so I can help you revise the plan.? You should not change the plan yourself. 14. Goal is to lose 1.5-2.0 lbs/week 15. Goal is to lose 10% of your weight before surgery, which is about 28.3 lbs. Ultimate weight goal: 255.5 lbs before surgery IF YOU EXPERIENCE PAIN, SEVERE SHORTNESS OF BREATH, DIZZINESS OR LIGHTHEADEDNESS, OR SIGNIFICANT CONSTIPATION OR DIARRHEA, (DIARRRHEA CAN OCCUR FROM SOME ARTIFICIAL SWEETENERS) PLEASE NOTIFY THE OFFICE! If you have diabetes, you will need to follow your blood sugars.? Please discuss with Dr. Gamboa.? If you have hypertension/high blood pressure, you will need to monitor your blood pressure regarding adjusting medications.? Please discuss with Dr. Gamboa.? Patient is morbidly obese and is not considered stable at this time.?I spent a total of 63 minutes reviewing/updating records, examining the patient and counseling the patient on weight management as detailed above. RADSONE options: ?Sit to Be Fit, Daily Burn, Jeramie, Walk away the pounds, [employer] Websites: Sit and Be Fit? https://www.sitandbefit.org/ Go For Life https://kk0asfr.claudia.nih.gov/ Coding Level of Care Code Est Pt Level 4 (46642) Diagnoses BMI 39.0-39.9,adult Z68.39 Severe obstructive sleep apnea G47.33 Depression F32.A Vitamin A deficiency E50.9 Vitamin D deficiency E55.9 Vitamin B1 deficiency E51.9
[2022-12-16 13:52] VITALS: BP 136/68; PULSE 81; TEMP 36.1; O2SAT 94; BMI 39.4
== END 2022-12-16 14:28 | disposition home or self-care (01) ==
PROVIDERS: Visit Provider Surgery
DX: E66.09 Other obesity due to excess calories (principal); Z68.39 Body mass index [BMI] 39.0-39.9, adult; G47.33 Obstructive sleep apnea (adult) (pediatric); E50.9 Vitamin A deficiency, unspecified; E55.9 Vitamin D deficiency, unspecified; E51.9 Thiamine deficiency, unspecified
CPT/HCPCS: 99214

== ENCOUNTER → 2022-12-16 13:45 | Outpatient (BNVA) | payer MEDICAID, SELFPAY | PROVIDERS: Visit Provider Surgery | DX: E66.9 Obesity, unspecified (principal); G47.33 Obstructive sleep apnea (adult) (pediatric); F32.A Depression, unspecified; E50.9 Vitamin A deficiency, unspecified; E55.9 Vitamin D deficiency, unspecified; E51.9 Thiamine deficiency, unspecified; Z68.39 Body mass index [BMI] 39.0-39.9, adult | CPT/HCPCS: 99212 ==

== ENCOUNTER → 2023-01-20 19:30 | Outpatient (REF) | payer MEDICAID, SELFPAY | LOC: HO.SL 19:30 | PROVIDERS: Visit Provider Nurse Practitioner Family | DX: G47.33 Obstructive sleep apnea (adult) (pediatric) (principal); G47.34 Idiopathic sleep related nonobstructive alveolar hypoventilation | CPT/HCPCS: 95810 ==

== ENCOUNTER → 2023-01-20 22:00 | Outpatient (BNV) | payer MEDICAID, SELFPAY | PROVIDERS: Visit Provider Psychiatry & Neurology Neurology | DX: G47.33 Obstructive sleep apnea (adult) (pediatric) (principal) | CPT/HCPCS: 95810 ==

== ENCOUNTER 2023-03-05 08:12 | Outpatient (AMB) | payer MEDICAID, SELFPAY ==
--- NOTE | 2023-03-05 10:48 | A.OFFVIS_ITS ---
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 Gamboa who is now on a medical leave and the patient was referred to me. I reviewed all previous records Patient needs to have the sleep apnea titration repeated Wakes up: Sleeps: [facility] Medical History (Updated 03/05/23 @ 11:27 by Mark Carpenter MD) Severe obstructive sleep apnea Nocturnal hypoxemia BMI 39.0-39.9,adult Surgical History No history of previous surgery Family History Mother No problems noted. Father Depression Son No problems noted. Son No problems noted. Son No problems noted. Son No problems noted. Social History Alcohol intake: current Alcohol intake frequency: holidays/special occasions only Patient Tobacco Use Status: Never used Tobacco Tobacco use type: Smokeless Tobacco Physical Exam Vital Signs: BMI result Body Mass Index 39.5 Assessment & Plan Assessment & Plan (1) Obesity: Code(s): E66.9 - Obesity, unspecified Qualifiers: Obesity type: due to excess calories Obesity classification: adult class 2 (BMI 35 - 39.9) Serious obesity comorbidity presence: with serious comorbidity Body mass index: BMI 39.0-39.9 Qualified Code(s): E66.01 - Morbid (severe) obesity due to excess calories; Z68.39 - Body mass index [BMI] 39.0- 39.9, adult Plan: 1.? Plan for lap sleeve gastrectomy. If diaphragmatic or ventral hernias are present at time of surgery, these will be repaired laparoscopically as well. Risks and complications were discussed in detail including possible conversion to an open procedure, anastomotic leak, bleeding requiring transfusion, small mirian wel obstruction, , DVT and pulmonary embolism, cardiac, or pulmonary complications, as alf complications such as anastomotic ulcer, insufficient weight loss and vitamin deficiencies. I emphasized the importance of close follow-up, adherence to instructions and good communication. 2. Nutritional counseling. Start with 2 plant-based organic Pure protein (buy at [employer], [employer], [employer], [employer]) shakes (1/2 scoop in 8oz low fat unsweetened almond milk each) at 8am-10am and 11am-1pm, 1 protein bar (Zone Perfect protein bars, buy at [employer], ?[employer], [employer], or [employer]) at 2pm-4pm, 1/2 bar at 5-6pm, dinner at 7pm (10 forks of protein and 10 forks of salad/vegetables) , 1/2 bar at 9-10pm and one more protein bar after dinner at 11pm-1am. 2. Nutritional counseling. Start with one 23gr protein shake (HALF scoop in 8oz low fat unsweetened almond milk each) at 3pm-5pm, dinner at 6pm (10 forks of protein and 10 forks of salad/vegetables), another protein shake with HALF scoop in 8oz almond milk at 8pm-10pm AND THREE Celebrate protein bars at 11pm-1am, 2am-4am and 5am-7am. So you do 2 protein shakes, 3 protein bars and one meal per day. Meal to include lean meat (beef, fish, pork, turkey, chicken), or burundian yogurt, or egg whites, or beans with a salad with olive oil and fruits (berries, pears, apples, kiwi). Avoid salt, breads, potatoes, rice, pasta, desserts. 3. Each shake would be drunk slowly, like coffee in a period of 2 hours. 4. Cut each bar in 4 pieces and eat each piece in 30min ?to make each bar last 2 hours. 5. I emphasized the importance of measuring accurately the food portion and measure it when serving the food in plate 6. The meal portions include 10 full-size forks of meat and 10 full-size forks of salad. You always eat the meat portion but you can replace up to 5 forks for salad/vegetables with rice, potatoes or pasta, or a fruit ?if you like. The less you do it the better weight loss will be. 7. One full-size fork is what it can be scooped on the fork without falling aside and not what can be bit with the fork. Use regular forks like those you find in a typical restaurant. 8.? Please send me weight measurements weekly on 9. Start treadmill with an incline of 2.0 and speed of 3.0. Increase incline by 1 every 3 min to a max incline of 8.0, stay 3min at 8.0 and then return to 2.0 and repeat same steps until calorie goal is met. Goal is to burn 2000 calories per week on exercise, which means either 300 calories daily, or 400 calories 5 days per week, or 500 calories 4 days per week, or 650 calories 3 days per week. Start also weight exercises with 20-30lbs for chest/shoulders/abdomen and 40- 50lbs for thighs doing 2 sets of 15 repetitions each. 10. Goal is to lose at least 1.5-2lbs per week 11. Goal to lose 10% of your weight before surgery, which is about 28lbs. Ultimate weight goal: 254lbs before surgery 12. Please follow the diet plan exactly without any change. If you don't like something about the plan or you feel hungry you need to communicate with me so I can help you revise the plan. You should not change the plan yourself. Medications: New thiamine HCl (vitamin B1) 100 mg PO DAILY 60 tabs 0RF lorazepam Take 2 hours before the sleep study 1 mg PO BEDTIME 1 tab 0RF anxiety Telehealth Telehealth Location of provider rendering services: practice address Location of patient: address on file Patient Identification confirmed using: Name, : Yes Telehealth method: voice only Patient verbally consented to treatment: Yes Patient verbally consented to billing insurance company: Yes Patient informed of any privacy concerns related to visit: Yes Minutes spent on Phone/Video with Pt.: 40 Coding Level of Care Code Tele Est Pt Level 4 (55882) Diagnoses Class 2 severe obesity due to excess calories with serious comorbidity and body mass index (BMI) of 39.0 to 39.9 in adult E66.01; Z68.39 Obesity type: due to excess calories Obesity classification: adult class 2 (BMI 35 - 39.9) Serious obesity comorbidity presence: with serious comorbidity Body mass index: BMI 39.0-39.9 Time Spent (min) 40
[2023-03-05 10:52] VITALS: BMI 39.5
== END 2023-03-05 11:33 | disposition home or self-care (01) ==
PROVIDERS: Visit Provider Surgery
DX: E66.01 Morbid (severe) obesity due to excess calories (principal); Z68.39 Body mass index [BMI] 39.0-39.9, adult
CPT/HCPCS: 99214

== ENCOUNTER → 2023-03-05 08:12 | Outpatient (BNVA) | payer MEDICAID, SELFPAY | PROVIDERS: Visit Provider Surgery ==

== ENCOUNTER 2023-03-18 13:56 | Outpatient (AMB) | payer MEDICAID, SELFPAY ==
--- NOTE | 2023-03-18 13:45 | A.OFFVIS_ITS ---
Intake Intake Visit Reasons: VIDEO F/U SWL Cloth Desizing Range Tender Required: Yes Cloth Desizing Range Tender Name: [email or web address] [email or web address] Information Interpreted: non-clinical & clinical Allergies No Known Allergies [No Known Allergies*] Allergy (Verified 11/25/22 15:00) HPI Nutrition Presentation Reason for consult elevated BMI Diet Assmnt Details they are asking me to follow a diet and go exercise but it would just be easier to get surgery - explained fpc expectations and the importance of lifelong changes. Pt also shares he is really struggling with Dr. Carpenter meal plan. Pt will reach out to him for changes. SWL online classes: did not discuss Dietary counseling reduction Diagnosis Nutrition problem #1 overweight/obesity As related to (etiology) #1 excess energy intake and physical inactivity As evidenced by (sign/symptom) #1 high BMI Monitoring/Goals Nutrition problem monitoring total energy intake, level of knowledge/skill, total PRO intake, total CHO intake and weight Outcome progress not met Learning/Education Readiness to learn fair Stages of change preparation Most Recent Diabetes Results: No Data to Display [facility] Medical History (Updated 03/05/23 @ 11:27 by Mark Carpenter MD) Severe obstructive sleep apnea Nocturnal hypoxemia BMI 39.0-39.9,adult Surgical History No history of previous surgery Family History Mother No problems noted. Father Depression Son No problems noted. Son No problems noted. Son No problems noted. Son No problems noted. Social History Alcohol intake: current Alcohol intake frequency: holidays/special occasions only Patient Tobacco Use Status: Never used Tobacco Tobacco use type: Smokeless Tobacco Assessment & Plan Assessment & Plan (1) BMI 39.0-39.9,adult: Code(s): Z68.39 - Body mass index [BMI] 39.0-39.9, adult Plan not cleared yet. will see Kellen again, was encouraged to speak with Dr. Carpenter regarding nutrition recommendations. Telehealth Telehealth Location of provider rendering services: other (home address, [facility]) Location of patient: address on file Patient Identification confirmed using: Name, : Yes Telehealth method: voice only Patient verbally consented to treatment: Yes Patient verbally consented to billing insurance company: Yes Patient informed of any privacy concerns related to visit: Yes Minutes spent on Phone/Video with Pt.: 30 Coding Level of Care Code Nutr Indiv Subseq (29165) Diagnoses BMI 39.0-39.9,adult Z68.39 Time Spent (min) 30
== END 2023-03-18 14:01 | disposition home or self-care (01) ==
LOC: HO.HBS 13:56
PROVIDERS: Visit Provider Dietitian, Registered
DX: Z68.39 Body mass index [BMI] 39.0-39.9, adult (principal)

== ENCOUNTER → 2023-03-18 13:56 | Outpatient (BNVA) | payer MEDICAID, SELFPAY | PROVIDERS: Visit Provider Dietitian, Registered | DX: E66.9 Obesity, unspecified (principal); Z68.39 Body mass index [BMI] 39.0-39.9, adult | CPT/HCPCS: 97803 ==

== ENCOUNTER 2023-03-22 08:08 | Outpatient (AMB) | payer MEDICAID, SELFPAY ==
[2023-03-22 11:43] VITALS: BMI 39.3
--- NOTE | 2023-03-22 11:43 | A.OFFVIS_ITS ---
Intake VS Expanded 03/22/23 11:43 Height 5 ft 11 in Weight 282 lb 1 oz BMI 39.3 Body Fat % 38.1 Body Fat Mass 107.5 Fat Free Mass 143.5 Intake Visit Reasons: TV Follow Up SWL - 1ST *[employer]* Allergies No Known Allergies [No Known Allergies*] Allergy (Verified 11/25/22 15:00) HPI TV Follow Up SWL - 1ST *[employer]* HPI Details Start time: 11.45am, End time: 12.12pm ?I spent 22 minutes speaking with the patient on the phone plus an additional 5 minutes reviewing and updating records for a total of 27 minutes HPI Comments History of Present Illness Details Is doing 1-2 Simply Whey protein shake (1 scoop=23 in 8oz almond milk) at 10am, a ONE bar and a meal [facility] Medical History (Updated 03/05/23 @ 11:27 by Mark Carpenter MD) Severe obstructive sleep apnea Nocturnal hypoxemia BMI 39.0-39.9,adult Surgical History No history of previous surgery Family History Mother No problems noted. Father Depression Son No problems noted. Son No problems noted. Son No problems noted. Son No problems noted. Social History Alcohol intake: current Alcohol intake frequency: holidays/special occasions only Patient Tobacco Use Status: Never used Tobacco Tobacco use type: Smokeless Tobacco Physical Exam Vital Signs: BMI result Body Mass Index 39.3 Assessment & Plan Assessment & Plan (1) Obesity: Code(s): E66.9 - Obesity, unspecified Qualifiers: Obesity type: due to excess calories Obesity classification: adult class 2 (BMI 35 - 39.9) Serious obesity comorbidity presence: with serious comorbidity Body mass index: BMI 39.0-39.9 Qualified Code(s): E66.01 - Morbid (severe) obesity due to excess calories; Z68.39 - Body mass index [BMI] 39.0- 39.9, adult Plan: 1. Please change nutritional plan to dinner at 4pm (10 forks of protein and 10 forks of salad or vegetables), one Simply Whey shake (1/2 scoop in 8oz almond milk or water) at 6pm-8pm, a ONE protein bar at 9pm-11pm, another Simply Whey shake (1/2 scoop in 8oz almond milk or water) at 12am-2am and 2 more ONE protein bars at 3am-5am and 6am-8am 2. Try to increase the treadmill to 3 days per week for 500 calories per work- out 3. Continue to send weight measurements weekly Telehealth Telehealth Location of provider rendering services: practice address Location of patient: address on file Patient Identification confirmed using: Name, : Yes Telehealth method: voice only Patient verbally consented to treatment: Yes Patient verbally consented to billing insurance company: Yes Patient informed of any privacy concerns related to visit: Yes Minutes spent on Phone/Video with Pt.: 27 Coding Level of Care Code Tele Est Pt Level 3 (44142) Diagnoses Class 2 severe obesity due to excess calories with serious comorbidity and body mass index (BMI) of 39.0 to 39.9 in adult E66.01; Z68.39 Obesity type: due to excess calories Obesity classification: adult class 2 (BMI 35 - 39.9) Serious obesity comorbidity presence: with serious comorbidity Body mass index: BMI 39.0-39.9 Time Spent (min) 27
== END 2023-03-22 12:13 | disposition home or self-care (01) ==
LOC: HO.HBS 08:08
PROVIDERS: Visit Provider Surgery
DX: E66.01 Morbid (severe) obesity due to excess calories (principal); Z68.39 Body mass index [BMI] 39.0-39.9, adult
CPT/HCPCS: 99213

== ENCOUNTER → 2023-03-22 08:08 | Outpatient (BNVA) | payer MEDICAID, SELFPAY | PROVIDERS: Visit Provider Surgery ==

== ENCOUNTER → 2023-04-11 20:30 | Outpatient (REF) | payer MEDICAID, SELFPAY | LOC: HO.SL 20:30 | PROVIDERS: Visit Provider Surgery | DX: G47.33 Obstructive sleep apnea (adult) (pediatric) (principal) | CPT/HCPCS: 95811 ==

== ENCOUNTER → 2023-04-11 22:39 | Outpatient (BNV) | payer MEDICAID, SELFPAY | PROVIDERS: Visit Provider Internal Medicine | DX: G47.33 Obstructive sleep apnea (adult) (pediatric) (principal) | CPT/HCPCS: 95811 ==

== ENCOUNTER 2023-04-19 07:58 | Outpatient (AMB) | payer MEDICAID, SELFPAY ==
[2023-04-19 08:33] VITALS: BMI 39.1
--- NOTE | 2023-04-19 08:33 | A.OFFVIS_ITS ---
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* HPI Details Start time: 8.14am, End time: 8.44am ?I spent 25 minutes speaking with the patient on the phone plus an additional 5 minutes reviewing and updating records for a total of 30 minutes HPI Comments History of Present Illness Details Overall weight loss: 2lbs, or 0.71% TBWL Is doing one protein shake, 2 Nugo (11gr of protein) protein bars, one meal Exercise: treadmill x2/2k for 300 calories PFSH Medical History (Updated 03/05/23 @ 11:27 by Mark Carpenter MD) Severe obstructive sleep apnea Nocturnal hypoxemia BMI 39.0-39.9,adult Surgical History No history of previous surgery Family History Mother No problems noted. Father Depression Son No problems noted. Son No problems noted. Son No problems noted. Son No problems noted. Social History Alcohol intake: current Alcohol intake frequency: holidays/special occasions only Patient Tobacco Use Status: Never used Tobacco Tobacco use type: Smokeless Tobacco Assessment & Plan Assessment & Plan (1) Obesity: Code(s): E66.9 - Obesity, unspecified Qualifiers: Obesity type: due to excess calories Obesity classification: adult class 2 (BMI 35 - 39.9) Serious obesity comorbidity presence: with serious comorbidity Body mass index: BMI 39.0-39.9 Qualified Code(s): E66.01 - Morbid (severe) obesity due to excess calories; Z68.39 - Body mass index [BMI] 39.0- 39.9, adult Plan: 1. Change nutritional plan to 2 protein shakes (1/2 scoop each in 8oz almond milk) at 8-10 and 11-1, one Nugo protein bar at 2-4, dinner at 5pm (10 forks each), and 2 Nugo protein bars at 7pm-9pm and 10pm-12am. 2. Increase exercise to 4 days per week for 400-500 calories per work-out 3. We will arrange for a CPAP machine 4. Send weight measurements weekly on Mondays Telehealth Telehealth Location of provider rendering services: practice address Location of patient: address on file Patient Identification confirmed using: Name, : Yes Telehealth method: voice only Patient verbally consented to treatment: Yes Patient verbally consented to billing insurance company: Yes Patient informed of any privacy concerns related to visit: Yes Minutes spent on Phone/Video with Pt.: 30 Coding Level of Care Code Tele Est Pt Level 4 (03810) Diagnoses Class 2 severe obesity due to excess calories with serious comorbidity and body mass index (BMI) of 39.0 to 39.9 in adult E66.01; Z68.39 Obesity type: due to excess calories Obesity classification: adult class 2 (BMI 35 - 39.9) Serious obesity comorbidity presence: with serious comorbidity Body mass index: BMI 39.0-39.9 Time Spent (min) 30 Comment with a Slovak speaking family resource management specialist
== END 2023-04-19 08:45 | disposition home or self-care (01) ==
LOC: HO.HBS 07:58
PROVIDERS: Referring Provider Nurse Practitioner Family; Visit Provider Surgery
DX: E66.01 Morbid (severe) obesity due to excess calories (principal); Z68.39 Body mass index [BMI] 39.0-39.9, adult
CPT/HCPCS: 99214

== ENCOUNTER → 2023-04-19 07:58 | Outpatient (BNVA) | payer MEDICAID, SELFPAY | PROVIDERS: Visit Provider Surgery ==

== ENCOUNTER 2023-04-21 13:00 | Outpatient (AMB) | payer OTHER, SELFPAY ==
--- NOTE | 2023-04-21 13:12 | MHC.WMTHER ---
Intake Intake Visit Reasons: VIDEO BH Intake Allergies No Known Allergies [No Known Allergies*] Allergy (Verified 11/25/22 15:00) [facility] Medical History (Updated 03/05/23 @ 11:27 by Mark Carpenter MD) Severe obstructive sleep apnea Nocturnal hypoxemia BMI 39.0-39.9,adult Surgical History (Reviewed 12/16/22 @ 14:11 by Stanley Gamboa MD, SACH[facility], [facility]) No history of previous surgery Family History Mother No problems noted. Father Depression Son No problems noted. Son No problems noted. Son No problems noted. Son No problems noted. Social History (Reviewed 12/16/22 @ 14:11 by Stanley Gamboa MD, [facility], [facility]) Alcohol intake: current Alcohol intake frequency: holidays/special occasions only Patient Tobacco Use Status: Never used Tobacco Tobacco use type: Smokeless Tobacco Behavioral Health Assessment Weight Management Therapy Therapy Notes Details PT is a 27 y/o male, who presents for assessment as part of surgical Weight-loss management program. PT denies any past history of mental health treatment, however shared some anxiety concerns, recent struggles around separation and poor self-control when it comes to food. PT is interested in weight-loss surgery as a way to do long-term changes in life-style and improve his health. On the othe hand, Scores in PHQ-9 indicate some Sx of depression, and BES scores indicate moderate risk for binge eating. PT has disclosed he has not been following meal plan as prescribed and is not not been consistent with the gym. 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 PT also, needs to set up small objectives and would benefit from using a behavioral activation plan for habit building. Presenting Concerns Referral Source P Provider. Pt sees Dr. Palomo Reason for referral Completion of behavioral health assessment as part of process for weight-loss surgery. Precipitating Event Obesity. Living Situation Current Living Situation Rent At risk of losing current housing? No Satisfied with current living situation? Yes Comments PT lives alone. Food/Weight/Diet Expectations of change The initial goal is to lose 10% of his weight before surgery, which is about 28lbs. Ultimate weight goal: 254lbs before surgery. He would like to be at least 180 lbs as a final goal, as well of adopt a healthy life style. History/Relationship with food PT started the meal plan again in February. Reports he struggles to follow meal plans as he gets hungry and bored of eating the same. PT has noticed he tends to snack more when stressed and when is off from work. . Example of meals before starting the program. Breakfast: skip as he arrives from work in the morning so, goes directly to take a shower and sleep. Lunch: rice, meal. Dinner: fast food. History/Relationship with weight He was overweight in childhood. In last 5 years, his lowest weight was around 240 lbs, and his highest was 288 lbs. History/Relationship with dieting Self-diets, gym membership, OTC pills. Has a hard time sticking to the longer than 2 weeks. Binge Eating Do you frequently eat large amounts of food in short periods of time, not feeling physically hungry? Yes Do you feel out of control when you eat a large amount of food in a short period of time? Yes Do you eat large amounts of food rapidly and typically alone? Yes Night Eating Do you wake up at least once during the night to eat? No If you wake up in the night, do you find that it is necessary to eat something in order to fall back asleep? Yes Do you have little or no appetite in the morning and feel very hungry in the evening, often overeating between dinner and when you go to bed? No Social History Family history and relationship . He has 1 child. He has 6 siblings, and parents alive. Pt describes distant relationships. 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 He lives with his mother. Developmental history and status None reported. Social support None. Community support None. Protestant/Spirituality None. Cultural/Ethnic information [place] was [place] in the [place]. Been in the [place] since 2008. Legal Involvement and History Current or historical involvement with the legal system? None reported. Education Highest grade completed 12th grade. Preferred learning style Learn by doing Currently enrolled in educational program? No Interested in further educational program? No Educational Interests/Skills Would like to go back to school for mechanics. 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 ) Wants help to find employment? No Meaningful activities Video Games. Financial Situation Describe current financial situation Occasional struggle Financial assistance? None Service Service? No Mental Health and Addiction Treatment Current/Past substance abuse? Yes Comments Vaping. Stop using it in september/2022 Current/Past addictive behavior concerns? No Psychiatric history Never been in treatment. PT states she suffers from anxiety however when questioned he did not mentioned any Symptom of anxiety, and struggles are related to self-control with food and possible emotional eating, binge eating episodes. Medical and Physical Health Summary Additional Medical History not covered in history None reported Sexual History concerns None reported Physical exam in the last year? No Pain Screening Current pain? Yes (Back pain.) Pain in the last few months? No Medications Is the patient compliant with medications? Not applicable Does the patient have [place] Guardian in place? Not applicable Does the patient use complimentary health approaches? No Trauma/Abuse History History of trauma? No Questionnaires PHQ-9 Over the last 2 weeks, how often have you been bothered by any of the following problems? 1. Little interest or pleasure in doing things: several days 2. Feeling down, depressed, or hopeless: more than half the days 3. Trouble falling or staying asleep, or sleeping too much: nearly every day (sleeping more than usual. ) 4. Feeling tired or having little energy: several days 5. Poor appetite or overeating: not at all 6. Feeling bad about yourself - or that you are a failure or have let yourself or your family down: several days 7. Trouble concentrating on things, such as reading the newspaper or watching television: not at all 8. Moving or speaking so slowly that other people could have noticed. Or the opposite - being so fidgety or restless that you have been moving around a lot more than usual: not at all 9. Thoughts that you would be better off or of hurting yourself in some way: several days (Last week. PT denies suicidal ideation, is more thoughts about not living anymore. ) Total score: 9 Depression Screening Interpretation: Positive Depression Screening Done: Yes 92202 - PHQ-9 Billing: Yes Source: Developed by Drs. Óscar Miller, Ashley Mendoza, Yinka Yancey and colleagues, with an educational marlon from [employer]. Binge Eating Scale Group 1 A. I don't feel self-conscious about my wt. or body size when I'm with others. B. I feel concerned about how I look to others, but it normally does not make me fell disappointed with myself C. I do get self-conscious about my appearance and wt. which makes me feel disappointed in myself. D. I feel very self-conscious about my wt. and frequently I feel intense shame and disgust for myself. I try to avoid social contacts because of my self-consciousness. Response Group 1: A Group 2 A. I don't have any difficulty eating slowly in the proper manner. B. Although I seem to gobble down foods, I don't end up feeling stuffed because of eating to much. C. At times, I tend to eat quickly and then, I feel uncomfortably full afterwards. D. I have the habit of bolting down my food, without really chewing it. When this happens I usually feel uncomfortably stuffed because I've eaten to much. Response Group 2: A Group 3 A. I feel capable to control my eating urges when I want to. B. I feel like I have failed to control my eating more than the average person. C. I feel utterly helpless when it comes to feeling in control of my eating urges. D. Because I feel so helpless about controlling my eating I have become very desperate about trying to get control. Response Group 3: B Group 4 A. I don't have the habit of eating when I'm bored. B. I sometimes eat when I'm bored, but often I'm able to get busy and get my mind off food. C. I have a regular habit of eating when I'm bored, but occasionally, I can use some other activity to get my mind off eating. D. I have a strong habit of eating when I'm bored. Nothing seems to help me breath the habit. Response Group 4: D Group 5 A. I'm usually physically hungry when I eat something. B. Occasionally, I eat something on impulse even though I really am not hungry. C. I have the regular habit of eating foods, that I might not really enjoy, to satisfy a hungry feeling even though physically, I don't need the food. D. Although I'm not physically hungry, I get a hungry feeling in my mouth that only seems to be satisfied when I eat a food, like sandwich, that fills my mouth. Sometimes, when I eat the food to satisfy my mouth hunger, I then spit the food out so I won't gain weight. Response Group 5: B Group 6 A. I don't feel any guilt or self-hate after I overeat. B. After I overeat, occasionally I feel guilt or self-hate. C. Almost all the time I experience strong guilt or self-hate after I overeat. Response Group 6: B Group 7 A. I don't lose total control of my eating when dieting even after periods when I overeat. B. Sometimes when I eat a forbidden food on a diet, I feel like I blew it and eat even more. C. Frequently, I have the habit of saying to myself, I've blown it now, why not go all the way, when I overeat on a diet. When that happens I eat more. D. I have a regular habit of starting a strict diets for myself but I break the diets by going on an eating binge. My life seems to be either a feast or famine. Response Group 7: B Group 8 A. I rarely eat so much food that I feel uncomfortably stuffed afterwards. B. Usually about once a month, I each such a quantity of food, I end up feeling very stuffed. C. I have regular periods during the month when I eat large amounts of food, either at mealtime or at snacks. D. I eat so much food that I regularly feel quite uncomfortable after eating and sometimes a bit nauseous. Response Group 8: A Group 9 A. My level of calorie intake does not go up very high or go down very low on a regular basis. B. Sometimes after I overeat, I will try to reduce my caloric intake to almost nothing to compensate for the excess calories I've eaten. C. I have a regular habit of overeating during the night. It seems that my routine is not to be hungry in the morning but overeat in the evening. D. In my adult years, I have had week-long periods where I practically starve myself. This follows periods when I overeat. It seems I live a life of either feast or famine. Response Group 9: B Group 10 A. I usually am able to stop eating when I want to. I know when enough is enough. B. Every so often, I experience a compulsion to eat which I can't seem to control. C. Frequently, I experience strong urges to eat which I seem unable to control, but at other times I can control my eating urges. D. I feel incapable of controlling urges to eat. I have a fear of not being able to stop eating voluntarily. Response Group 10: D Group 11 A. I don't have any problem stopping eating when I feel full. B. I usually can stop eating when I feel full but occasionally overeat leaving me feeling uncomfortably stuffed. C. I have a problem stopping eating once I start and usually I feel uncomfortably stuffed after I eat a meal. D. Because I have a problem not being able to stop eating when I want, I sometimes have to induce vomiting to relieve my stuffed feeling. Response Group 11: C Group 12 A. I seem to eat just as much when I'm with others, Family social gatherings as when I'm by myself. B. Sometimes, when I'm with other persons, I don't eat as much as I want to eat because I'm self-conscious about my eating. C. Frequently, I eat only a small amount of food when others are present, because I'm very embarrassed about my eating. D. I feel so ashamed about overeating that I pick times to overeat when I know no one will see me. I feel like a closet eater. Response Group 12: C Group 13 A. I eat three meals a day with only an occasional between meal snack. B. I eat 3 meals a day, but I also normally snack between meals. C. When I am snacking heavily, I get in the habit of skipping regular meals. D. There are regular periods when I seem to be continually eating, with no planned meals. Response Group 13: C Group 14 A. I don't think much about trying to control unwanted eating urges. B. At least some of the time, I feel my thoughts are pre-occupied with trying to control my eating urges. C. I feel that frequently I spend much time thinking about how much I ate or about trying not to eat anymore. D. It seems to me that most of my waking hours are pre-occupied by thoughts about eating or not eating. I feel like I'm constantly struggling not to eat. Response Group 14: B Group 15 A. I don't think about food a great deal. B. I have strong craving for food but they last only for brief periods of time. C. I have days when I can't seem to think about anything else but food. D. Most of my days seem to be pre-occupied with thoughts about food. I feel like I live to eat. Response Group 15: C Group 16 A. I usually know whether or not I'm physically hungry. I take the right portion of food to satisfy me. B. Occasionally, I feel uncertain about knowing whether or not I'm physically hungry. A these times it's hard to know how much food I should take to satisfy me. C. Even though I might know how many calories I should eat, I don't have any idea what is a normal amount of food for me. Response Group 16: B Binge Eating Score: 21 Score less than 17 Minimal Risk Score between 18-26 Moderate Risk Score between 27-46 High Risk Assessment & Plan Assessment & Plan (1) Adjustment disorder: Code(s): F43.20 - Adjustment disorder, unspecified Qualifiers: Adjustment disorder type: unspecified type Qualified Code(s): F43.20 - Adjustment disorder, unspecified Plan PT not cleared today. IT is unclear if patient is struggling with binge eating episodes, however he has disclosed concerns with emotional eating. He will be seen again in 1 month for support with habit building, emotional eating and commitment with weight-loss goals. Next kristina 05/18/22 at 1pm, via telehealth. Telehealth Telehealth Location of patient: other Patient Identification confirmed using: Name, : Yes Telehealth method: voice only Patient verbally consented to treatment: Yes Patient verbally consented to billing insurance company: Yes Patient informed of any privacy concerns related to visit: No Minutes spent on Phone/Video with Pt.: 65 Coding Level of Care Code New Pt Tele Psy Diag Eval (23058) Patient Type New Diagnoses Adjustment disorder, unspecified type F43.20 Adjustment disorder type: unspecified type Time Spent (min) 65
== END 2023-04-21 14:00 | disposition home or self-care (01) ==
LOC: HO.HBST 13:37
PROVIDERS: Visit Provider Counselor Mental Health
DX: F43.20 Adjustment disorder, unspecified (principal)
CPT/HCPCS: 90837

== ENCOUNTER → 2023-04-21 13:00 | Outpatient (BNVA) | payer MEDICAID, SELFPAY | PROVIDERS: Visit Provider Counselor Mental Health ==

== ENCOUNTER 2023-04-28 08:57 | Day surgery (SDC) | payer MEDICAID, SELFPAY ==
[2023-04-26 13:23] VITALS: BMI 39.0
[2023-04-28] VITALS (11 sets, daily range): BP systolic 117–164; BP diastolic 73–99; PULSE 80–124; RESP 14–16; TEMP 36.2–36.9; O2SAT 93–98; BMI 39.6
[2023-04-28] MEDS: Lactated Ringers 1,000 ML 80 ML IVCONT (09:41)
--- NOTE | 2023-04-28 10:01 | HO.ANESPROP2 ---
HPI - Anesthesia Eval Consult details Narrative: 27 yo male patient for EGD PMFSH Active Problems Active Problems: All Active Problems (Updated 04/28/23 @ 10:00 by Phyllis Marx MD) Obesity (Acute) BMI 39.6 Vitamin B1 deficiency (Acute) Vitamin D deficiency (Acute) Vitamin A deficiency (Acute) Depression (Acute) Nicotine use (Acute) Non-restorative sleep (Acute) Stage 1 type 1 prediabetes (Acute) BMI 39.0-39.9,adult (Acute) Nocturnal hypoxemia (Acute) Severe obstructive sleep apnea (Acute) Past Medical History Medical History Depression Nocturnal hypoxemia Severe obstructive sleep apnea BMI 39.0-39.9,adult Family History Family History Mother No problems noted. Father Depression Son No problems noted. Son No problems noted. Son No problems noted. Son No problems noted. Family history of problems with anesthesia: No Surgical History Surgical History No history of previous surgery History of Problems with Anesthesia: No Social History Social History Alcohol intake: current Alcohol intake frequency: holidays/special occasions only Patient Tobacco Use Status: Never used Tobacco Tobacco use type: Smokeless Tobacco Use of substances other than those prescribed or required for medical reasons: No Are you DNR?: No Advance Directives: No Advance Directives Information Provided: No Meds Allergies Allergy/AdvReac Type Severity Reaction Status Date / Time No Known Allergies Allergy Verified 11/25/22 15:00 [No Known Allergies*] Active Medications: Current Medications Lactated Ringer's (Lr) 1,000 mls @ 80 mls/hr IVCONT .[id number] ESTEFANY Last Admin: 04/28/23 09:41 Dose: 80 mls/hr Exam Height,Weight and Vital Signs: Height 5 ft 11 in Weight 128.82 kg Last Vital Signs Temp 98.4 F 04/28/23 09:28 Pulse 82 04/28/23 09:28 Resp 16 04/28/23 09:28 BP 143/86 H 04/28/23 09:28 Pulse Ox 98 04/28/23 09:28 O2 Del Method Room Air 04/28/23 09:28 Airway Mallampati Class: III TM Dist: >3cm Neck ROM: Full Loose/Missing/Broken Teeth: No (Denies broken, loose, missing teeth ) Heart: RRR Lungs: CTAB Assessment and Plan Assessment Anesthesia Assessment: Anesthesia Plan Discussed and Chart Reviewed Final Anesthetic Review Family History of Problems with Anesthesia: No History of Problems with Anesthesia: No NPO: Yes ASA Class: III Final Preanesthetic Review: No Changes in Pt Med Stat, Meds/Allgs Chart Reviewed, Consent Obtained/Reviewed and Anes Risks/Benef Reviewed Patient Risk: Intermediate Procedure Risk: Low Assessment/Block/Sedation in SS: Assess/Block/Sedation-SS Anesthetic Plan Anesthetic Plan: GA, MAC: and TIVA Disposition: Standard PACU
--- NOTE | 2023-04-28 10:50 | MHC.SHP ---
Pre-Procedural Eval Section A - 24 Hr Update-Section A only Date of Service: 04/28/23 The patient is an INPATIENT: No The patient has been examined within 24 hours of the surgical procedure. The History & Physical has been completed within 30 days and I have reviewed it.: Yes Section B - Complete if H&P > 30 days Chief Complaint: Morbid (severe) obesity due to excess calories Details of Present Illness: GERD Relevant Family History (Specify if Yes): No Relevant Social History: None Present Medications: None Medical History: No relevant PMH History of Previous Operations: No relevant previous surgery Allergies: Allergies Allergy/AdvReac Type Severity Reaction Status Date / Time No Known Allergies Allergy Verified 11/25/22 15:00 [No Known Allergies*] Review of Systems Sugical H&P ROS: Negative: Constitution, Cardiovascular, Respiratory, Neurological, Psychiatric, Hem-Onc, Allergic/Immunologic, Genitourinary, Musculoskeletal, Integumentary, Endocrine and Eyes/Ears/Nose/Throat and Yes, Specify: Gastrointestinal (Heartburn) Exam Surgical H&P Exam: Normal: HEENT, Normal: Heart, Normal: Lungs, Normal: Extremities, Normal: Abdomen, Normal: Skin and Normal: Neurological Plan Diagnosis/Plan: Unchanged (EGD to assess etiology of GERD. Risks of bleeding and perforation were discussed with the patient and he is in agreement with the plan.) I have reviewed the history and physical and performed a pertinent physical examination on my patient. No changes have occurred unless specified. Time Spent With Patient Time: Total time managing care of this patient today ____ minutes.
--- NOTE | 2023-04-28 10:53 | PM.OP ---
Brief Operative Note Date of Service: 04/28/23 Pre-op diagnosis: GERD Post-op diagnosis: same Procedure: PROCEDURE DATE: 04/28/2023 PREOPERATIVE DIAGNOSIS: GERD POSTOPERATIVE DIAGNOSIS: ?Same as above. Normal endoscopy PROCEDURE: Ojgihepn-hlacbh-hzvdnquerkgy with biopsies Surgeon: Shanika Carpenter M.D.. Ph.D. Genetic Coordinator: None ? Anesthesia: IV sedation Estimated blood loss: ?Minimal FINDINGS AND PROCEDURE: ? OPERATIVE INDICATIONS: ?The patient is a 27 year old male known to me who is interested in bariatric surgery. The patient has GERD. Based on this information I recommended an upper endoscopy to evaluate the patient's symptoms. Risks and complications of the surgery were discussed with the patient in advance particularly the possibility of perforation or bleeding that may require surgical intervention. The patient understood the risks and was in agreement with the plan. ? PROCEDURE: After informed consent was obtained by the patient, the patient was ?transferred to the Operating Room and was placed in the supine position.? After successful induction of IV sedation, a mouth block was inserted and the patient was placed in the left lateral decubitus position. The patient however desaturated and endotracheal intubation was required. An upper endoscopy was performed next, the oropharynx and esophagus appeared within the normal limits. There was a no hiatal hernia. The z-line was smooth. Two biopsies were obtained from the distal esophagus 2-3 cm proximal to the GE junction and two additional biopsies from the GE junction. The stomach was entered and it appeared to be of normal size. There was no gastritis at distal antrum. There was no stricture or ulcer. A biopsy was obtained from the antrum and gastric fundus. No significant bleeding was noted from any of the biopsy sites. The scope was then advanced into the duodenum which appeared to be normal as well. At that point the duodenum ?and the stomach were decompressed and the scope was withdrawn from the patient's mouth. The patient extubated and was transferred in stable condition to the Recovery Room for further care. I was present and performed all steps of the procedure. There were no residents to assist with this case. Sky Carpenter M.D., Ph.D. Surgeon: Mark Carpenter MD Anesthesia: MAC Was an Genetic Coordinator used for this Procedure?: No Estimated blood loss (mL): 0 IV fluids (mL): 400 Urine output (mL): 0 (No Noguera to record output) Pathology: other (1) antrum x1, 2) fundus x1, 3) GE junction x2, 4) distal esophagus x2) Condition: stable Disposition: PACU
== END 2023-04-28 14:46 | disposition home or self-care (01) ==
PROVIDERS: PCP Nurse Practitioner Family; Visit Provider Surgery
PROC: 0DJ08ZZ Inspection of Upper Intestinal Tract, Via Natural or Artificial Opening Endoscopic (ICD-10-PCS; CPT 43235; principal; 2023-04-28 10:10)
DX: K21.9 Gastro-esophageal reflux disease without esophagitis (principal); E66.01 Morbid (severe) obesity due to excess calories; Z68.39 Body mass index [BMI] 39.0-39.9, adult; G47.33 Obstructive sleep apnea (adult) (pediatric)
CPT/HCPCS: 43239; 88305; 88313; 88342; J0330; J1596; J2250; J2704

== ENCOUNTER → 2023-04-28 08:57 | Outpatient (BNV) | payer MEDICAID, SELFPAY | PROVIDERS: PCP Nurse Practitioner Family; Visit Provider Surgery | DX: K21.9 Gastro-esophageal reflux disease without esophagitis (principal) | CPT/HCPCS: 43239 ==

== ENCOUNTER 2023-05-07 14:46 | Outpatient (AMB) | payer MEDICAID, SELFPAY ==
--- NOTE | 2023-05-07 14:55 | A.OFFVIS_ITS ---
Intake Vital Signs 3 05/07/23 14:56 Height 6 ft Weight 268 lb BMI 36.3 Pulse 78 Pulse Source Pulse Oximeter Pulse Oximetry (%) 98 Oxygen Delivery Method Room Air Intake Visit Reasons: f/u on sleep study Management Information Systems Director Required: No Paralegals: Paralegals offered & declined Allergies No Known Allergies [No Known Allergies*] Allergy (Verified 05/07/23 15:00) HPI f/u on sleep study 2 HPI0 Details Edu is a pleasant 27 year old male, never smoker with underlying severe obstructive sleep apnea, AHI of 69 and morbid obesity. He continues to report daytime fatigue and loud snoring. At the last visit, he was sent for titration study to optimize pressures for CPAP therapy. He had difficulties initially with testing due to insomnia. Ultimately, he had an adequate study in March. Today he presents to discuss starting CPAP therapy. He currently denies any respiratory symptoms. [facility] Medical History Depression Nocturnal hypoxemia Severe obstructive sleep apnea BMI 39.0-39.9,adult Surgical History No history of previous surgery Family History Mother No problems noted. Father Depression Son No problems noted. Son No problems noted. Son No problems noted. Son No problems noted. Social History Alcohol intake: current Alcohol intake frequency: holidays/special occasions only Patient Tobacco Use Status: Never used Tobacco Tobacco use type: Smokeless Tobacco Review of Systems Const Denies chills, Denies excessive sweating, Denies fever(s), Denies headache(s) and Denies night sweats Eyes Denies dry eyes, Denies irritation and Denies itchy eyes ENT Reports Normal hearing present, Denies headache(s), Denies nasal congestion, Denies nasal discharge, Denies post nasal drip and Denies sore throat Card Denies chest pain, Denies chest pain at rest, Denies chest pain with activity, Denies claudication, Denies leg edema, Denies dyspnea, Denies dyspnea on exertion, Denies orthopnea and Denies paroxysmal nocturnal dyspnea Resp Denies chest congestion, Denies cough, Denies excessive phlegm production, Denies pain on inspiration, Denies pain with cough, Denies dyspnea, Denies dyspnea on exertion, Denies stridor and Denies wheezing Musc Denies myalgias Neuro Reports Normal hearing present and Denies headache(s) Endo Denies excessive sweating Jay/Lymph Denies lymphadenopathy Aller/Immun Denies itchy eyes, Denies seasonal rhinorrhea and Denies wheezing Physical Exam Vital Signs: Last Vital Signs Pulse 78 05/07/23 14:56 Pulse Ox 98 05/07/23 14:56 Oxygen Delivery Method Room Air 05/07/23 14:56 BMI result Body Mass Index 36.3 Const General: cooperative, healthy appearing, comfortable, no acute distress, well developed and alert Nutritional Appearance: obese Orientation/consciousness: patient oriented x3 Limitations: no limitations HEENT Head: Yes normal to inspection, Yes normocephalic and Yes atraumatic Ears: hearing grossly normal bilaterally and external ears normal Eyes General: appearance normal, both eyes and all related structures Eyelids: Yes eyelids normal Sclerae: sclerae normal EOM: EOMs intact bilaterally Neck Neck: Yes normal visual inspection and Yes no lymphadenopathy Lymphatic: no lymphadenopathy noted Chest Chest palpation & inspection: normal inspection of the chest Resp Effort & Inspection: normal respiratory effort, able to speak in complete sentences, no audible wheezes, no cough, no stridor, not tachypneic, no tripod positioning and no use of accessory muscles Auscultation: clear to auscultation bilaterally Cardio Jugular venous distension: no JVD Rate: regular rate Rhythm: regular rhythm Skin Other: warm, dry General skin exam: no rashes or lesions noted Neuro General: patient oriented x3 Cranial nerves: Yes Normal hearing present Cognition (Neuro): normal cognition Gait exam (Neuro): Normal gait present Extrem General: Yes normal to inspection, Yes capillary refill normal, Yes no clubbing, cyanosis or edema and Yes no pedal edema Psych Appearance: grossly normal and well kempt Speech and movement: Normal speech and movement present and Clear speech present Affect: normal affect Attitude: cooperative Thought process: Normal thought process present Thought content: Normal thought content present Insight: Good insight present (Psych) Judgement: Good judgement present (Psych) Results Reviewed Results Reviewed: Assessment & Plan Assessment & Plan (1) Severe obstructive sleep apnea: Code(s): G47.33 - Obstructive sleep apnea (adult) (pediatric) (2) Nocturnal hypoxemia: Code(s): G47.34 - Idiopathic sleep related nonobstructive alveolar hypoventilation Plan During most recent titration study, with use of CPAP, patient's obstructive events, snoring and hypoxemia were eliminated. Since patient is quite symptomatic, will start CPAP therapy. Will send in prescription for CPAP and pressure setting of 10 cm with close monitoring for compliance and benefits. Recommendations of a medium nasal mask. Sleep hygiene education reviewed. He is aware if there are any issues with the mask or CPAP machine, he will call the office. All questions were answered and patient is in agreement of plan. Will follow up in 8 weeks. Coding Level of Care Code Est Pt Level 3 (28312) Diagnoses Severe obstructive sleep apnea G47.33 Nocturnal hypoxemia G47.34
[2023-05-07 14:56] VITALS: PULSE 78; O2SAT 98; BMI 36.3
== END 2023-05-07 15:09 | disposition home or self-care (01) ==
PROVIDERS: PCP Nurse Practitioner Family; Visit Provider Nurse Practitioner Family
DX: G47.33 Obstructive sleep apnea (adult) (pediatric) (principal); G47.34 Idiopathic sleep related nonobstructive alveolar hypoventilation
CPT/HCPCS: 99213

== ENCOUNTER → 2023-05-07 14:46 | Outpatient (BNVA) | payer MEDICAID, SELFPAY | PROVIDERS: PCP Nurse Practitioner Family; Visit Provider Nurse Practitioner Family | DX: G47.33 Obstructive sleep apnea (adult) (pediatric) (principal); G47.34 Idiopathic sleep related nonobstructive alveolar hypoventilation | CPT/HCPCS: 99212 ==